=== PATIENT | male | born 1950 | race Hispanic/Latino ===

== ENCOUNTER → 2020-09-04 | Outpatient (CLI) | payer OTHER | END | disposition home or self-care (01) | LOC: RAH 09:14 | PROVIDERS: ATTEND Internal Medicine Cardiovascular Disease | DX: Z13.6 Encounter for screening for cardiovascular disorders (principal) | CPT/HCPCS: 75571 ==

== ENCOUNTER 2025-10-15 22:27 | Emergency (ER) | payer OTHER ==
[~2025-10-15] VITALS: Ht 170.2 cm; Wt 76.2 kg
[2025-10-15 22:30] VITALS: BP 138/85; PULSE 88; RESP 18; TEMP 98.8
--- NOTE | 2025-10-15 22:44 | ERN ---
ED Note History of Present Illness Stated Complaint: medical clearance Chief Complaint: Medical Clearance Time Seen by MD: 22:28 Dictation: Patient is a 75-year-old male brought by law enforcement in voluntarily to have a medical clearance. Review of System Dictation NEGATIVE EXCEPT PER HPI Constitutional: Negative for fever,chills, and weight loss Eyes: Negative for injury, pain,redness, and discharge ENT: Negative for injury,pain or swelling Cardiovascular: denies chest pain, palpitations, and edema Respiratory: Negative for shortness of breath, cough, and wheezing, Abdomen/GI: Negative for abdominal pain, nausea, vomiting, diarrhea, and constipation Back: Negative for injury and pain : Negative for injury, bleeding and discharge MS/Extremity: Negative for injury and deformity Skin: Negative for rash, and discoloration Neuro: Negative for headache, weakness, numbness, tingling, and seizure Psych: Negative for suicide ideation, homicidal ideation, and hallucinations Initial Vital Sign VS Vital Signs Date Time Temp Pulse Resp B/P (MAP) Pulse Ox O2 Delivery O2 Flow Rate FiO2 10/15/25 22:30 98.8 88 18 138/85 99 Room Air Physical Exam Dictation General: awake, alert, NAD Head/Face: Normocephalic, atraumatic Eyes: PERRL, EOMI, vision at baseline ENT: oral cavity clear, TMs clear, no signs of infection Neck: Trachea midline, supple, no nuchal rigidity Cardiovascular: RRR, normal S1/S2, No MRGs, no JVD Respiratory: CTAB, no respiratory distress, No rales or wheezes Abdomen: Soft , no tender Skin: Warm, dry, normal turgor, no rash MS/Extremity: Pulses equal, no cyanosis, neurovascular intact, FROM Neuro: COAx4, GCS 15, strength 5/5, CN 2-12 intact, normal cerebellar exam, normal gait, Psych: Normal behavior, mood, and affect normal ED Course ED Course Vital Signs Date Time Temp Pulse Resp B/P (MAP) Pulse Ox O2 Delivery O2 Flow Rate FiO2 10/15/25 22:30 98.8 88 18 138/85 99 Room Air Medical Decision Making MDM Patient came in voluntary to have medical clearance, laboratory workup. DX & DISP Disposition: Discharge Departure Impression: Primary Impression: Encounter for medical clearance for patient hold Condition: Stable Referrals: FANNY SCHWARTZ MD (PCP) KOURTNEY AMEZCUA MD Oct 15, 2025 22:43
--- NOTE | 2025-10-15 22:50 | NUR ---
PATIENT PRESENTS IN CUSTODY WITH [facility] [facility] REGGIE, #[id number]. PATIENT IS [id number] AND IS REFUSING TO BE SEEN/RECIEVE MEDICAL TREATMENT AT THIS [facility]ACIL[facility]. PATIENT IS HERE FOR VOLUNTARY BLOOD DRAW. PATIENT SUBMITTING SELF TO VOLUNTARY BLOOD DRAW. ED MD AT BEDSIDE. REFER TO CHART FOR REFUSAL TO SUBMIT TO MEDICAL TREATMENT.
== END 2025-10-15 23:00 ==
LOC: EEVIPCON 22:27 → EDH 22:27
DX: Z04.89 Encounter for examination and observation for other specified reasons (principal)
CPT/HCPCS: 99283